=== PATIENT | male | born 1995 | race African-American/Black ===

== ENCOUNTER 2021-05-20 10:25 | Emergency (ER) | payer BC, MEDICAID ==
[~2021-05-20] VITALS: Ht 182.9 cm; Wt 102.0 kg
[2021-05-20 17:40] VITALS: BP 135/78
== END 2021-05-20 17:31 | disposition home or self-care (01) ==
LOC: ER 10:25
DX: R07.89 Other chest pain (principal); Z98.890 Other specified postprocedural states; Z20.822 Contact with and (suspected) exposure to COVID-19
CPT/HCPCS: 93005; 99284; C9803; U0003; U0005